=== PATIENT | female | born 1955 | race Caucasian/White ===

== ENCOUNTER → 2024-12-03 10:41 | Outpatient (REF) | payer MEDICARE, OTHER, SELFPAY | LOC: HWRAD 10:41 | PROVIDERS: ATTENDING PHYSICIAN Internal Medicine | DX: M19.079 Primary osteoarthritis, unspecified ankle and foot (principal); Z12.39 Encounter for other screening for malignant neoplasm of breast; M85.842 Other specified disorders of bone density and structure, left hand; N95.9 Unspecified menopausal and perimenopausal disorder | CPT/HCPCS: 77063; 77067; 77080 ==

== ENCOUNTER → 2025-06-30 07:16 | Outpatient (REF) | payer MEDICARE, OTHER, SELFPAY | LOC: HWRAD 07:16 | PROVIDERS: ATTENDING PHYSICIAN Nurse Practitioner Family | DX: R10.13 Epigastric pain (principal) | CPT/HCPCS: 76700 ==